=== PATIENT | female | born 1980 | race Caucasian/White ===

== ENCOUNTER → 2017-03-11 | Day surgery (SDC) | payer SELFPAY ==
[~2017-03-11] VITALS: Ht 167.6 cm; Wt 96.2 kg
[~2017-03-11] MED LIST: OMEPRAZOLE40 M1 PO
--- NOTE | 2017-03-11 14:59 | Operative Report ---
Operative/Inv Procedure Report Surgery Date: 03/11/17 Name of Procedure: cosmetic abdominoplasty Pre-Operative Diagnosis: lipodystrophy Post-Operative Diagnosis: same Estimated Blood Loss: scant (200) Surgeon/Logistics Research Engineer: SIENA GARCIA MD Anesthesia: general endotracheal tube Operative/Procedure Note Note: Patient was counseled regards the procedure the alternatives risks and expected outcomes as relates to her request for surgical intervention to treat a lax abdominal wall. She has no symptoms and is cosmetic only the patient understands that. She was marked in the standing position with a measuring tape. She signed informed consent. She was taken to the operating placed supine on the table. Of note the patient signed and a SPS informed consent for abdominal plus and no further questions regarding his morning. After the application of Venodyne boots general endotracheal anesthesia was established intravenous antibiotics were given. The abdomen was prepped and draped in usual sterile fashion. The lower incision was deepened after freeing the umbilicus. Abdominal wall flap was elevated off the abdominal wall without injury to the fascia. She was put in the sitting position to assess the upper incision which was good and it was divided and the flap removed. Tunneling was performed up to the xiphoid. 2 layer repair diastases was performed with nonabsorbable sutures from xiphoid to pubis. Patient was put in the semi-phallus position a 3 layer closure was carried out over drains. Ends dictation
== END ==
LOC: STS 02:03
DX: Z41.1 Encounter for cosmetic surgery (principal); E65 Localized adiposity; K21.9 Gastro-esophageal reflux disease without esophagitis; K57.90 Diverticulosis of intestine, part unspecified, without perforation or abscess without bleeding
CPT/HCPCS: 81025; C9399; J0131; J0690; J2250; J2405; Q9968